=== PATIENT | female | born 1950 | race Caucasian/White ===

== ENCOUNTER → 2016-11-30 | Outpatient (CLI) | payer OTHER ==
[~2016-11-30] MED LIST: ADIPEX-P37.5 M1 PO; ALEVE220 MG PO; ALPRAZOLAM 0.50.5 M1 PO; APAP500 PO; ASPIRIN EC81 M1 PO; BACLOFEN 10MG T10 MG PO; BYSTOLIC 5 MG5 M1 PO; CARISOPRODOL 3350 MG PO; DEXILANT60 MG PO; ESTRATEST HS PO; FISH OIL 1,001000 MG PO; GABAPENTIN 100100 MG PO; HYDROCHLOROTHIA25 M1 PO; MULTIVITAMINS PO; TOPROL XL25 MG PO; TRAMADOL 50 MG50 MG PO; VITAMINC500 PO
== END ==
LOC: RAD 16:47
DX: M40.294 Other kyphosis, thoracic region (principal); M47.817 Spondylosis without myelopathy or radiculopathy, lumbosacral region

== ENCOUNTER → 2017-02-23 | Outpatient (CLI) | payer OTHER ==
[~2017-02-23] VITALS: Ht 167.6 cm; Wt 64.9 kg
--- NOTE | ~2017-02-23 | HPC ---
[facility] [place] [address] PAIN MANAGEMENT CONSULTATION Name: HUTCHISONCOMFORT D Room #: REG [facility].#: [id number] Admission: 02/23/17 Attend Phys: Brett Harman DO Discharge: Date of : 50 Report #: [id number] THIS REPORT FOR: //name// CC: Brett Cabrera MD DATE OF SERVICE: 02/23/2017 CHIEF COMPLAINT: Low back pain, right mid thoracic pain. HISTORY OF PRESENT ILLNESS: As you know, the patient is a 67-year-old female who has been referred back to our clinic to discuss options for treatment. We last saw the patient 01/22/2016 when she was diagnosed with myofascial pain, lumbosacral spondylosis without radicular symptoms. She was treated with conservative medical therapy, even trialed intraarticular facet injections, but these were ineffective. She has been lost to follow up visit until today where she returns with a request of Dr. Cabrera to trial trigger point injections. There has been no new imaging that shows any pathology that would be contributing to the patient's symptoms. ALLERGIES: CODEINE, HYDROCODONE. CURRENT MEDICATIONS: Estratest 0.625 mg once a day, hydrochlorothiazide 25 mg per day, Dexilant 60 mg once a day, gabapentin 100 mg p.o. at bedtime, naproxen 220 mg 2 tabs b.i.d., acetaminophen 500 mg once a day, multivitamin 1 tab per day. SOCIAL HISTORY: The patient denies tobacco, alcohol, IV or illicit drug use. She is working, not receiving workmen's compensation. She is unaccompanied today. IMAGING: No new imaging available. PHYSICAL EXAMINATION: VITAL SIGNS: Blood pressure 123/74, pulse 74, respiratory rate 14, unlabored. The patient is 98% on room air, height 5 feet 6 inches tall, weight 143 pounds, BMI calculated 23.1. GENERAL: Well-developed, well-nourished, well-hydrated 67-year-old female, appears much younger than stated age, placing current pain score at around 3/10. HEENT: Normocephalic, atraumatic. Pupils equal, round, reactive to light. Extraocular muscles are intact. Sclerae nonicteric without injection. NEUROLOGIC: Cranial nerves 2-12 grossly intact. Speech fluent. The patient deemed a good historian. LUNGS: Clear, no wheeze, rhonchi or rales. CARDIOVASCULAR: Regular. [place] [address] PAIN MANAGEMENT CONSULTATION Name: COMFORT HUTCHISON Room #: REG [facility]#: [id number] Admission: 02/23/17 Attend Phys: Brett Harman DO Discharge: Date of : 50 Report #: [id number] ABDOMEN: Soft, nontender, nondistended, normoactive bowel sounds. EXTREMITIES: Show no clubbing, no cyanosis, no edema. MUSCULOSKELETAL: The patient does have tenderness to palpation over the paraspinal musculature of the thoracic and lumbar area. I was able to palpate 6 different trigger points that caused the patient's typical radiating pain pattern. There is no spinous process tenderness in this thoracolumbar area. ASSESSMENT: 1. Myofascial pain. 2. Muscle spasms of the thoracic paraspinal musculature. 3. Chronic intractable pain. PLAN: 1. The patient returns today in followup visit where we have discussed treatment options per the request of her primary care physician, Dr. Juvenal Cabrera. It does appear the patient is suffering from some myofascial symptoms and I recommend trigger point injections into the 6 trigger points we have identified by physical exam today. The patient was advised risks and benefits of this procedure, states she understood and wished to proceed. 2. The patient will be started on Soma 350 mg dose 1 tab p.o. t.i.d. She has been on this medication in the past and denies any somnolence, decreased mental acuity, disorientation with its use. We will start the patient on Soma 350 mg dose to be taken as needed for muscle spasming. The patient was advised not to drive or operate heavy equipment while on this medication. 3. The patient was provided prescription of tramadol 50 mg dose 1 tab p.o. q. 6 hours p.r.n. for pain, given the patient #90 tablets, advised the patient to take this medication when pain is intolerable, not to rely on the medication prophylactically. This medication is to be used only for breakthrough pain unresolved by stretching and changing positions. 4. We will see the patient back in followup visit on an as needed basis for possible repeat trigger point injections. We can then discuss at that time other treatment options if necessary. Again, we do not see any major pathology that would be leading to her symptoms. I believe her symptoms tend to be more myofascial PROCEDURE NOTE DESCRIPTION OF PROCEDURE: Trigger point injections. After obtaining written consent, the patient was placed in a prone position. By palpating using a single finger, 6 trigger points were identified that reproduced the patient's typical radiating pain pattern. The trigger points were located within the paraspinal musculature of the upper thoracic and mid thoracic area. Each of the target sites of injection were cleansed using aseptic technique with chlorhexidine. A 27-gauge 1-1/4 inch needle was then advanced towards each trigger point until the patient's typical radiating pain [facility] [address] [place] [address] PAIN MANAGEMENT CONSULTATION Name: COMFORT HUTCHISON Room #: REG [facility]#: [id number] Admission: 02/23/17 Attend Phys: Brett Harman DO Discharge: Date of : 50 Report #: [id number] pattern was reproduced. After negative aspiration for heme, 1 mL of a solution containing 1 mL 40 mg per mL, 40 mg total triamcinolone and 5 mL of bupivacaine 0.5% was injected in a fanned out distribution at each trigger point total volume of 6 mL being given. Sterile bandages were placed over each injection site. The patient tolerated procedure well, carefully escorted to recovery room in stable condition. After meeting our discharge criteria, the patient was then discharged home. By: [id number] Brett Harman DO /nt
[2017-02-23 14:19] VITALS: BP 123/74
== END | disposition home or self-care (01) ==
LOC: PAIN 07:17
DX: M79.1 Myalgia (principal); G89.29 Other chronic pain; Z88.8 Allergy status to other drugs, medicaments and biological substances; Z79.899 Other long term (current) drug therapy; Z98.890 Other specified postprocedural states

== ENCOUNTER → 2017-03-16 | Outpatient (CLI) | payer OTHER ==
[~2017-03-16] VITALS: Ht 165.1 cm; Wt 66.2 kg
--- NOTE | ~2017-03-16 | HPC ---
[facility] [address] [place] [address] PAIN MANAGEMENT CONSULTATION Name: KIANNACOMFORT D Room #: REG [facility].#: [id number] Admission: 03/16/17 Attend Phys: Brett Harman DO Discharge: Date of : 50 Report #: [id number] THIS REPORT FOR: //name// CC: Brett Cabrera MD DATE OF SERVICE: 03/16/2017 REFERRING PHYSICIAN: Juvenal Cabrera MD CHIEF COMPLAINT: Low back pain, right lower extremity pain with paresthesias. HISTORY OF PRESENT ILLNESS: As you know, the patient is a very pleasant 67-year-old female who returns today in followup visit with low back pain, now reporting pain radiating all the way from the low back through the buttock posterolateral thigh all the way down to her calf. It appears to be along the L5 dermatomal distribution. She indicates no injury and no trauma that may have led to symptoms, but believes that she may have initiated pain while trying to dig out a large tammy alcaraz, which required a significant amount of digging and pulling and this may have led to her symptom development. She returns today in followup visit per the request of her primary care physician to trial an epidural injection under fluoroscopic guidance. ALLERGIES: HYDROCODONE and CODEINE. CURRENT MEDICATIONS: Estratest, hydrochlorothiazide, Dexilant, gabapentin, naproxen, acetaminophen, and multivitamin. SOCIAL HISTORY: The patient denies tobacco, alcohol, IV or illicit drug use. She is working, not receiving workmen's compensation nor is she trying to obtain disability benefits. She is unaccompanied today. IMAGING: No new imaging available. PHYSICAL EXAMINATION: VITAL SIGNS: Blood pressure 124/78, pulse 82, respiratory rate 14 and unlabored, the patient is 97% on room air, height 5 feet 5 inches tall, weight 146 pounds, and BMI calculated 24.3. GENERAL: Well-developed, well-nourished, well-hydrated 67-year-old female, appearing her stated age. She is placing current pain score 2-7/10 depending on activity. HEENT: Normocephalic, atraumatic. Pupils are equal, round, and reactive to light. Extraocular muscles are intact. Speech is fluent. EXTREMITIES: Show no clubbing, no cyanosis, and no edema. MUSCULOSKELETAL: Seated straight leg raising negative. Supine straight leg [address] [address] PAIN MANAGEMENT CONSULTATION Name: COMFORT HUTCHISON Room #: REG [facility]#: [id number] Admission: 03/16/17 Attend Phys: Brett Harman DO Discharge: Date of : 50 Report #: [id number] raising mildly positive right. Ester's test negative. She is intact to light touch from L1 through S2 dermatomes. Muscle bulk and tone equal and symmetrical in lower extremities. Gait normal. Stance normal. ASSESSMENT: 1. Symptomatic lumbar radiculopathy. 2. Lumbosacral spondylosis with radicular symptoms. PLAN: 1. The patient has returned today in followup visit with what appears to be lumbar radiculopathy on the L5 nerve roots running down the right leg. The patient and I discussed at length treatment options for lumbar radicular pain. These would include physical therapy, stretching exercises, and core strengthening. We discussed medication management, the addition of a neuropathic pain medication, low dose opioid for pain control and consistent nonsteroidal anti-inflammatory. We discussed lumbar epidural injections under fluoroscopic guidance, spinal cord stimulator therapy and surgical options. After reviewing the risks and benefits of all proposed treatment options, the patient chose to undergo an epidural injection under fluoroscopic guidance. The patient has been advised of risks and benefits of the procedure. These risks include, but are not necessarily limited to bleeding, bruising, infection, worsening of pain, no relief of pain, also risk of temporary or permanent muscle weakness, temporary or permanent nerve damage, post-dural puncture headache and . The patient states understood and wished to proceed. 2. No medication changes were made at today's visit. The patient to continue current medical therapy as previously prescribed. 3. The patient to return to our clinic on an as needed basis for next in the series of epidural injections. PROCEDURE NOTE DESCRIPTION OF PROCEDURE: L5-S1 right paramedian epidural steroid injection under fluoroscopic guidance. This is the first procedure of the first series that the patient is undergoing. After obtaining written consent, the patient was taken back to the fluoroscopy suite, placed in a prone position with pillow under the abdomen to decrease lumbar lordosis. The skin overlying the lumbosacral area was then prepped and draped in aseptic fashion. The L5-S1 vertebral interspace was then identified by AP fluoroscopy. The skin and subcutaneous tissue overlying the target site of injection was anesthetized with 3 mL 1% lidocaine. A 20-gauge 3-1/2-inch Tuohy needle was then advanced under fluoroscopic guidance towards the epidural space using a right paramedian approach. The epidural [address] [address] PAIN MANAGEMENT CONSULTATION Name: COMFORT HUTCHISON Room #: REG [facility]#: [id number] Admission: 03/16/17 Attend Phys: Brett Harman DO Discharge: Date of : 50 Report #: [id number] space was identified using loss of resistance to air technique. After negative aspiration for heme or cerebrospinal fluid, a total of 1 mL of Omnipaque was injected. A lumbar epidurogram was confirmed using both AP and lateral fluoroscopy. After negative aspiration for heme or cerebrospinal fluid, 5 mL of a solution containing 2 mL 40 mg per mL, 80 mg total triamcinolone and 3 mL lidocaine 1% was injected in increments. Contrast spread was noted posterior epidural space. The needle was then retracted approximately half way and needle tract flushed with 1 mL of 1% lidocaine. Needle was then removed. There were no apparent sensory or motor deficits in the lower extremity following the procedure. A sterile bandage was placed over the injection site. The heart rate, pulse, oximetry and blood pressure were continuously monitored after the procedure. There were no apparent complications. The patient tolerated the procedure well and was carefully escorted to the recovery room in stable condition. There were no apparent complications. After meeting discharge criteria, the patient was then discharged home. <ELECTRONICALLY SIGNED> By: Brett Harman DO 03/17/17 [id number] Brett Harman DO /nt
[2017-03-16 12:41] VITALS: BP 124/78
== END | disposition home or self-care (01) ==
LOC: PAIN 07:06
DX: M54.16 Radiculopathy, lumbar region (principal); M47.27 Other spondylosis with radiculopathy, lumbosacral region; Z88.8 Allergy status to other drugs, medicaments and biological substances; Z79.899 Other long term (current) drug therapy

== ENCOUNTER → 2017-04-06 | Outpatient (CLI) | payer OTHER ==
[~2017-04-06] VITALS: Ht 167.6 cm; Wt 66.0 kg
--- NOTE | ~2017-04-06 | HPC ---
[facility] [place] [address] PAIN MANAGEMENT CONSULTATION Name: COMFORT HUTCHISON Charli Room #: REG [facility]#: [id number] Admission: 04/06/17 Attend Phys: Brett Harman DO Discharge: Date of : 50 Report #: [id number] THIS REPORT FOR: //name// CC: Brett Cabrera MD DATE OF SERVICE: 04/06/2017 REFERRING PHYSICIAN: Juvenal Cabrera MD CHIEF COMPLAINT: Low back pain, right lower extremity pain with paresthesias. HISTORY OF PRESENT ILLNESS: As you know, the patient is a very pleasant 67-year-old female who returns today in followup visit to undergo epidural injection under fluoroscopic guidance. She last underwent an epidural injection 3 weeks ago. She has reported 50% improvement in overall pain. She is now placing pain score at 3-8/10 depending on activity. She indicates standing movement tends to exacerbate symptoms. She returns today in followup visit for next in a series of epidural injections. ALLERGIES: HYDROCODONE, CODEINE. CURRENT MEDICATIONS: Estratest, hydrochlorothiazide, Dexilant, gabapentin, naproxen, acetaminophen and multivitamins. SOCIAL HISTORY: The patient denies tobacco, alcohol, IV or illicit drug use. She is working, not receiving workmen's compensation, unaccompanied today. IMAGING: No new imaging available. PHYSICAL EXAMINATION: VITAL SIGNS: Blood pressure 127/70, pulse 92, respiratory rate 14 and unlabored. The patient is 97% on room air, height 5 feet 6 inches tall, weighs 145.6 pounds, BMI calculated 23.5. GENERAL: Well developed, well nourished, well hydrated 67-year-old female, appearing her stated age. Placing current pain score at 3-8/10 depending on activity. HEENT: Normocephalic, atraumatic. Pupils equal, round, reactive to light. Extraocular muscles are intact. EXTREMITIES: Show no clubbing, no cyanosis, no edema. MUSCULOSKELETAL: Seated straight leg raising negative. Supine straight leg raising mildly positive on the right. Ester's test negative. Modified Gaenslen's positive for axial low back pain. Muscle bulk and tone equal and symmetrical in lower extremities, intact to light touch from L1 through S2 dermatomes. [address] [address] PAIN MANAGEMENT CONSULTATION Name: COMFORT HUTCHISON Room #: REG [facility]#: [id number] Admission: 04/06/17 Attend Phys: Brett Harman DO Discharge: Date of : 50 Report #: [id number] ASSESSMENT: 1. Lumbar radiculopathy. 2. Lumbosacral spondylosis with radiculopathy. 3. Chronic intractable pain. PLAN: 1. The patient returns today in followup visit, indicating 50% improvement in overall pain with the epidural injection. She returns today in followup visit, requesting to undergo the next in series of injections in hopes of improving pain. We have advised the patient of the risks and benefits, states she understood and wished to proceed. 2. No medication changes were made at today's visit. The patient will continue current medical therapy as previously prescribed. 3. The patient to return to our clinic on an as-needed basis for the third and final in series of epidural injections. PROCEDURE NOTE DESCRIPTION OF PROCEDURE: L5-S1 right paramedian epidural steroid injection under fluoroscopic guidance. This is the second procedure of the first series that the patient is undergoing. After obtaining written consent, the patient was taken back to the fluoroscopy suite, placed in a prone position with pillow under the abdomen to decrease lumbar lordosis. The skin overlying the lumbosacral area was then prepped and draped in aseptic fashion. The L5-S1 vertebral interspace was then identified by AP fluoroscopy. The skin and subcutaneous tissue overlying the target site of injection was anesthetized with 3 mL 1% lidocaine. A 20 gauge 3.5 inch Tuohy needle was then advanced under fluoroscopic guidance towards the epidural space using right paramedian approach. The epidural space was identified using loss of resistance to air technique. After negative aspiration for heme or cerebrospinal fluid, a total of 1 mL of Omnipaque was injected. A lumbar epidurogram was confirmed using both AP and lateral fluoroscopy. After negative aspiration for heme or cerebrospinal fluid, 5 mL of a solution containing 2 mL 40 mg per mL, 80 mg total triamcinolone and 3 mL lidocaine 1% was injected in increments. Contrast spread was noted posterior epidural space. The needle was then retracted approximately half way and needle tract flushed with 1 mL of 1% lidocaine. Needle was then removed. There were no apparent sensory or motor deficits in the lower extremity following the procedure. A sterile bandage was placed over the injection site. The heart rate, pulse, oximetry and blood pressure were continuously monitored after the procedure. There were no apparent complications. The patient [facility] [address] [place] [address] PAIN MANAGEMENT CONSULTATION Name: COMFORT HUTCHISON [facility] [id number] Admission: 04/06/17 Attend Phys: Brett Harman DO Discharge: Date of : 50 Report #: [id number] tolerated the procedure well and was carefully escorted to the recovery room in stable condition. There were no apparent complications. After meeting discharge criteria, the patient was then discharged home. By: [id number] Brett Harman DO /nt
[2017-04-06 11:12] VITALS: BP 127/70
== END | disposition home or self-care (01) ==
LOC: PAIN 07:12
DX: M54.16 Radiculopathy, lumbar region (principal); M47.27 Other spondylosis with radiculopathy, lumbosacral region; G89.29 Other chronic pain; Z88.8 Allergy status to other drugs, medicaments and biological substances; Z79.899 Other long term (current) drug therapy

== ENCOUNTER → 2017-05-03 | Outpatient (CLI) | payer OTHER | LOC: MRI 09:06 → RAD 14:10 → MRI 14:10 | DX: Z12.31 Encounter for screening mammogram for malignant neoplasm of breast (principal); M47.896 Other spondylosis, lumbar region ==

== ENCOUNTER → 2017-05-18 | Outpatient (CLI) | payer OTHER ==
[~2017-05-18] VITALS: Ht 167.6 cm; Wt 69.2 kg
--- NOTE | ~2017-05-18 | HPC ---
[facility] [address] [place] [address] PAIN MANAGEMENT CONSULTATION Name: HUTCHISONCOMFORT Charli Room #: REG [facility]#: [id number] Admission: 05/18/17 Attend Phys: Brett Harman DO Discharge: Date of : 50 Report #: [id number] THIS REPORT FOR: //name// CC: Brett Cabrera MD DATE OF SERVICE: 05/18/2017 REFERRING PHYSICIAN: Juvenal Cabrera MD CHIEF COMPLAINT: Low back pain, right lower extremity pain and paresthesias. HISTORY OF PRESENT ILLNESS: As you know, the patient is a very pleasant 67-year-old female who returns today in followup visit reporting pain level of 5-6/10. She indicates that the pain begins in low back, radiates down the right leg, but intermittently left leg. She states this pain as numbness, aching, constant in sensation, exacerbated with standing and activities, improved with cold temperatures and previous epidural injections. She reported a 50% improvement in overall pain with the last epidural injection, but this only lasted for a week to week and a half. Due to lack of efficacy from the epidural injections, the patient was subsequently referred for MRI, she has returned to review the findings of the MRI that was performed on 05/03/2017. ALLERGIES: HYDROCODONE and CODEINE. CURRENT MEDICATIONS: Multivitamin 1 tab per day, Aleve 220 mg 2 tabs twice a day, Neurontin 100 mg 2 tabs at night, Dexilant 60 mg once a day, hydrochlorothiazide 25 mg per day, and Estratest 0.625 mg once a day. SOCIAL HISTORY: The patient denies tobacco, alcohol, IV or illicit drug use. She is working, not receiving workmen's compensation, unaccompanied today. IMAGING: MRI lumbar spine obtained on 05/03/2017, shows a cavernous hemangioma at the L1 vertebral body, chronic degenerative changes at L5-S1 with calcifications within the disk space, Modic type 2 changes present in the end plates at the L5-S1 level. L1-L2 unremarkable. L2-L3 shows mild changes, no disk protrusion, no central canal stenosis. L3-L4, mild bilateral degenerative disk disease, ligamentum flavum hypertrophy. No central canal neural foraminal stenosis. L4-L5, minimal grade 1 spondylolisthesis, advanced bilateral hypertrophic degenerative changes. There is a development of a bilateral intraspinal synovial cyst, which is greatest on the right, right-sided synovial cyst which originates from the facet joint measures contributing the right lateral recess narrowing, ligamentum flavum hypertrophy causing joint space narrowing, traverse dimension of the central canal is measured at 8 mm, AP diameter narrowed to 9 mm, there is bilateral neural foraminal narrowing. [address] [address] PAIN MANAGEMENT CONSULTATION Name: COMFORT HUTCHISON Room #: REG [facility]#: [id number] Admission: 05/18/17 Attend Phys: Brett Harman DO Discharge: Date of : 50 Report #: [id number] L5-S1, degenerative disk disease, partial calcification of the disk, small disk osteophyte complex, mild bilateral neural foraminal narrowing. PHYSICAL EXAMINATION: VITAL SIGNS: Blood pressure 128/61, pulse 85, respiratory rate 16 and unlabored, the patient is 96% on room air, height 5 feet 6 inches tall, weight 152.6 pounds, and BMI calculated at 24.6. GENERAL: Well-developed, well-nourished, well-hydrated 67-year-old female, appearing her stated age, she is placing current pain score at 5-6/10. HEENT: Normocephalic, atraumatic. Pupils are equal, round, and reactive to light. Extraocular muscles are intact. Sclerae nonicteric without injection. NEUROLOGIC: Speech fluent. The patient deemed an excellent historian. LUNGS: Clear. No wheeze, rhonchi or rales. CARDIOVASCULAR: Regular. No appreciable gallop or rub. ABDOMEN: Soft, nontender, and nondistended. EXTREMITIES: Show no clubbing, no cyanosis, and no edema. MUSCULOSKELETAL: Seated straight leg raising negative. Supine straight leg raising mildly positive on right. Ester's test negative. Modified Gaenslen's positive for some axial low back pain. Ankle clonus negative. Babinski is negative. ASSESSMENT: 1. Lumbar radiculopathy. 2. Lumbosacral spondylosis with radiculopathy. 3. Synovial cyst in the lumbar spine. 4. Chronic intractable pain. PLAN: 1. The patient returns today in followup visit where we reviewed her MRI imaging. I believe her symptoms are related to the synovial cyst that have presented since our last evaluation of 12/25/2015. I believe the combination of arthritic changes and synovial cysts are the source of the patient's mainly right-sided leg pain and paresthesias, but also contributing to left side symptoms. The patient had undergone epidural injections, unfortunately these only provided transient improvement in symptoms, I believe mainly due to the mass effect of the synovial cyst in the lateral recess. The patient and I discussed that options that remain for treatment would include medication management, physical therapy with stretching exercises, repeating epidural injections, though I do not feel those will provide long-term benefit based on previous injections, spinal cord stimulator therapy as an option and surgical options to removed the cystic formations, alleviating the pressure caused by these cysts. We also discussed interventional radiology with cyst aspiration understanding that the cyst will return without excision of the cystic material. After reviewing all the risks and benefits of treatment options available, the patient chose to look towards a neurosurgery option. 2. The patient will be referred to neurosurgery for evaluation for the findings [address] [address] PAIN MANAGEMENT CONSULTATION Name: COMFORT HUTCHISON Room #: REG [facility]#: [id number] Admission: 05/18/17 Attend Phys: Brett Harman DO Discharge: Date of : 50 Report #: [id number] on the MRI of 05/03/2017, at the L4-L5 level the source of the patient's symptoms. The patient will be seen by neurosurgery to determine if a synovial cystectomy and possible laminectomy would be necessary to address ongoing pain issues. We did discuss the interventional radiology root, having the interventional radiologist aspirate or rupture the cyst, though the patient was advised that the cystic formation would return in time and would have to ultimately be excised. After this discussion, the patient chose to look specifically towards neurosurgery consultation. She was provided the referral for neurosurgery, she will follow up with the neurosurgery team and then contact our clinic with recommendations and treatment options. 3. No medication changes were made at today's visit, the patient will continue current medical therapy as previously prescribed. 4. We will see the patient back in followup visit depending on consultation and recommendations from neurosurgery, we will be available to see her back as necessary. <ELECTRONICALLY SIGNED> By: Brett Harman DO 05/19/17 [id number] Brett Harman DO /nt
[2017-05-18 08:26] VITALS: BP 128/61
== END | disposition home or self-care (01) ==
LOC: PAIN 07:23
DX: M54.16 Radiculopathy, lumbar region (principal); M47.27 Other spondylosis with radiculopathy, lumbosacral region; M71.38 Other bursal cyst, other site; G89.29 Other chronic pain

== ENCOUNTER → 2018-01-25 | Outpatient (CLI) | payer OTHER ==
[~2018-01-25] VITALS: Ht 167.6 cm; Wt 66.0 kg
[~2018-01-25] MED LIST changes: +VALIUM5 MG PO
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
[2018-01-25 09:23] VITALS: BP 123/80
== END | disposition home or self-care (01) ==
LOC: PAIN 07:30
DX: M51.16 Intervertebral disc disorders with radiculopathy, lumbar region (principal); G89.29 Other chronic pain; M79.1 Myalgia; Z88.8 Allergy status to other drugs, medicaments and biological substances; Z79.899 Other long term (current) drug therapy; Z98.890 Other specified postprocedural states

== ENCOUNTER → 2018-02-15 | Outpatient (CLI) | payer OTHER ==
[~2018-02-15] VITALS: Ht 167.6 cm; Wt 63.7 kg
[~2018-02-15] MED LIST changes: +TRAMADOL HCL50 MG PO
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
[2018-02-15 10:43] VITALS: BP 130/80
== END ==
LOC: PAIN 08:04
DX: M47.817 Spondylosis without myelopathy or radiculopathy, lumbosacral region (principal); G89.4 Chronic pain syndrome; M79.661 Pain in right lower leg

== ENCOUNTER → 2018-02-21 | Outpatient (CLI) | payer OTHER | LOC: MRI 09:27 | DX: M54.16 Radiculopathy, lumbar region (principal) ==

== ENCOUNTER → 2018-03-30 | Outpatient (CLI) | payer OTHER ==
[~2018-03-30] VITALS: Ht 167.6 cm; Wt 65.0 kg
--- NOTE | ~2018-03-30 | HPC ---
[facility] [place] [address] PAIN MANAGEMENT CONSULTATION Name: COMFORT HUTCHISON Room #: REG [facility] Enrique.#: [id number] Admission: 03/30/18 Attend Phys: Brett Harman DO Discharge: Date of : 50 Report #: [id number] THIS REPORT FOR: //name// CC: Brett Cabrera MD DATE OF SERVICE: 03/30/2018 REFERRING PHYSICIAN: Juvenal Cabrera M.D. CHIEF COMPLAINT: Low back pain and bilateral buttock and right lower extremity pain. HISTORY OF PRESENT ILLNESS: As you know, the patient is a 68-year-old female followed by [facility] for lumbar radiculopathy. She returns today in followup visit having completed a lumbar MRI and she wishes to review the findings. She also was discussed treatment options for her ongoing symptoms. She returns today in followup visit with noted minor changes at the L3-L4 level and the L5-S1 level which would correlate to a typical finding seen from a post-fusion patients. The findings themselves do not cause any lateralizing features. She returns today in followup visit stating a pain of around 3/10. She wishes to begin the preauthorization process to undergo epidural injection. She indicates her pain is aching, tightness, intermittent in nature, bending, moving, standing, exacerbates symptoms, cold compresses, lying down, medications tend to help pain. She returns today in followup visit to review her MRI and to discuss the possibility of undergoing an epidural injection to address recurrent lumbar radicular symptoms. ALLERGIES: CODEINE, HYDROCODONE and NITROFURANTOIN. CURRENT MEDICATIONS: Estratest, hydrochlorothiazide, Dexilant, gabapentin and diazepam. SOCIAL HISTORY: The patient continues to work. Denies IV or illicit drug use. Denies any chronic alcohol use. She is unaccompanied today. IMAGING DATA: MRI lumbar spine shows a small disk protrusion at the L3-L4 level. There appears to be mild arthritic changes within the facet joints, also some mild neural foraminal narrowing at this level. L4-L5 is unchanged, post-laminectomy changes typical surgical findings. L5-S1, there is a small base disk bulge, mild facet arthropathy. No neural foraminal stenosis. PQRS: The patient has a history of osteoarthritis involving the low back, bilateral hands and hips. She is not diagnosed with rheumatoid arthritis. She places pain intensity 3/10, not a fall risk, has not had a fall in the last [address] [address] PAIN MANAGEMENT CONSULTATION Name: COMFORT HUTCHISON Room #: REG [facility]#: [id number] Admission: 03/30/18 Attend Phys: Brett Harman DO Discharge: Date of : 50 Report #: [id number] months. She is not on blood thinners. She is treated for hypertension. She is not on opioids. She is a low risk for opioid dependency. She is placing current pain score 45/70, moderate to severe interference with daily activities secondary to pain. PHYSICAL EXAMINATION: VITAL SIGNS: Blood pressure 129/82, pulse 87 and respiratory rate 18 and unlabored. The patient 99% on room air. Height 5 feet 6 inches tall, weight 143.4 pounds and BMI calculated 23.2. GENERAL: Well-developed, well-nourished, well-hydrated 68-year-old female. She appears her stated age, placing current pain score at approximately 3/10. HEENT: Normocephalic and atraumatic. Pupils equal, round and reactive to light. EXTREMITIES: Show no clubbing, no cyanosis and no edema. MUSCULOSKELETAL: Lower extremity strength is equal and symmetrical, 5/5. She is intact to light touch from L1 through S2 dermatomes. Muscle bulk and tone equal and symmetrical in lower extremities. Ankle clonus negative. Babinski is negative. Seated straight leg raise negative. Supine straight leg raising is negative. Ester's test negative. Modified Gaenslen's positive for axial low back pain. ASSESSMENT: 1. Recurrent lumbar radiculopathy. 2. Mild displacement of lumbar intervertebral disk with radiculopathy. 3. Chronic intractable pain. PLAN: 1. The patient returns today in followup visit where we reviewed in its entirety the recent MRI and how it correlates to symptoms. I am pleased to indicate that there is no new acute changes in her lumbar spine, the changes noted at the L3-L4 level and again at the L5-S1 level appeared to be related to post-fusion typical findings of development of arthritis. There is a small broad-based disk bulges at the L3-L4 and the L5-S1 levels though they are not causing cord impingement nor are they causing any significant spinal stenosis. There are some mild neural foraminal changes noted at the L3-L4 level. No changes of these type at the L5-S1 level. We have discussed this with the patient today. After this long discussion in regards to the MRI, which she took nearly 22 minutes of time. We then began to discuss treatment options and following was discussed. We discussed physical therapy, stretching exercise, core strengthening as a treatment option. We discussed medication management with the addition of a neuropathic pain medication, low dose opioid for pain control and consistent nonsteroidal anti-inflammatory. We discussed lumbar epidural injections, which have been successful in the past to treat her symptoms. We discussed a spinal cord stimulator therapy and ultimately surgical options, though at this point, I do not feel the patient is a surgical candidate. After reviewing risks and benefits of all proposed treatment [address] [address] PAIN MANAGEMENT CONSULTATION Name: COMFORT HUTCHISON Charli [id number] Admission: 03/30/18 Attend Phys: Brett Harman DO Discharge: Date of : 50 Report #: [id number] options, the patient chose to move forward with an epidural injection. We discussed with the patient options for timing for epidural injection at this appointment. The patient states she cannot undergo the procedure as she has to return to work. She will make a followup appointment with one of our clinics to undergo epidural injection. I did allow the patient to look at her schedule contact us later this evening, so that we can establish an appointment date. We have appointments at our clinic here at [place], possibly at [facility] either on Wednesday or or at [facility] on Wednesday. We will await the patient's call to establish the appointment date. 2. No medication changes were made at today's visit. The patient will continue current medical therapy as previously prescribed. 3. We will see the patient back in followup visit once she has established appointment to undergo the requested lumbar epidural injection. <ELECTRONICALLY SIGNED> By: Brett Harman DO 03/31/18 0818 [id number] Brett Harman DO /catalina
[2018-03-30 13:31] VITALS: BP 129/82
== END ==
LOC: PAIN 07:56
DX: M51.16 Intervertebral disc disorders with radiculopathy, lumbar region (principal); G89.4 Chronic pain syndrome

== ENCOUNTER → 2018-07-12 | Outpatient (CLI) | payer OTHER ==
[~2018-07-12] VITALS: Ht 167.6 cm; Wt 69.8 kg
[~2018-07-12] MED LIST changes: +PEPCID20 MG PO
--- NOTE | ~2018-07-12 | HPC ---
[facility] [address] [place] [address] PAIN MANAGEMENT CONSULTATION Name: HUTCHISON,COMFORT D Room #: REG [facility].#: [id number] Admission: 07/12/18 Attend Phys: Brett Harman DO Discharge: Date of : 50 Report #: [id number] THIS REPORT FOR: //name// CC: Brett Moreno DATE OF SERVICE: 07/12/2018 CHIEF COMPLAINT: Low back pain, bilateral buttock and right lower extremity pain with paresthesias. HISTORY OF PRESENT ILLNESS: As you know, the patient is a very pleasant 68-year-old female who returns today in followup visit to address lumbar radicular symptoms with a lumbar epidural injection under fluoroscopic guidance. The patient has received good benefit with previous epidural injections, the most recent giving improvement of 50%, lasting for more than 2 months. She returns today in followup visit to undergo next in the series of epidural injections to address slowly recurrent pain for which she is placing pain score up to 5-6/10. She denies new injury, new trauma that may have led to symptom reoccurrence. She returns today to undergo epidural injection under fluoroscopic guidance. ALLERGIES: CODEINE, HYDROCODONE, NITROFURANTOIN. CURRENT MEDICATIONS: Estratest, hydrochlorothiazide, Dexilant, gabapentin, diazepam. SOCIAL HISTORY: The patient continues to work. She denies IV or illicit drug use. Denies any chronic alcohol use. She is unaccompanied today. IMAGING: No new imaging available. PQRS: The patient has history of osteoarthritis involving low back, bilateral hands and hips, no diagnosis of rheumatoid arthritis. She is reporting pain intensity of 5-6/10. She is not a fall risk, has not had a fall in the last 3 months. She is not on blood thinners. She is treated for hypertension. She is not on chronic opioids. She is a low risk for opioid addiction. She is placing her pain impact at 45/70, [id number] interference of daily activities secondary to pain. PHYSICAL EXAMINATION: VITAL SIGNS: Blood pressure 133/71, pulse is 73, respiratory rate 16 and unlabored. The patient is 98% on room air. Height 5 feet 6 inches tall, weight 153.8 pounds, BMI calculated at 24.8. GENERAL: Well-developed, well-nourished, well-hydrated 68-year-old female, [address] [address] PAIN MANAGEMENT CONSULTATION Name: HUTCHISONCOMFORT NAYAK Room #: REG [facility]#: [id number] Admission: 07/12/18 Attend Phys: Brett Harman DO Discharge: Date of : 50 Report #: [id number] appearing stated age, placing pain score 5-6/10. HEENT: Normocephalic, atraumatic. Pupils equal, round, reactive to light. EXTREMITIES: Show no clubbing, no cyanosis, no edema. MUSCULOSKELETAL: Lower extremity strength is symmetrical 5/5, intact to light touch from L1 through S2 dermatomes. Seated straight leg raising negative. Supine straight leg raising negative. Ester's test negative. Modified Gaenslen's positive for axial low back pain. Ankle clonus negative. Well-healed surgical scar in lower lumbar spine. ASSESSMENT: 1. Recurrent lumbar radiculopathy. 2. Mild displacement of lumbar intervertebral disk with radiculopathy. 3. Chronic intractable pain. PLAN: 1. The patient returns today in followup visit having noted 50% improvement in overall pain with the previous epidural injection lasting for nearly 2 months. Unfortunately, the patient's symptoms have begun to return. She returns today to undergo epidural injection under fluoroscopic guidance to address these symptoms. She has been advised risks and benefits of procedure, states understood and wished to proceed. 2. No medication changes made at today's visit. The patient will continue current medical therapy as previously prescribed. 3. We will see the patient back in followup visit on an as needed basis for the next in a series of epidural injections. PROCEDURE NOTE DESCRIPTION OF PROCEDURE: L3-L4 Lumbar epidural steroid injection under fluoroscopic guidance. After obtaining written consent, the patient was taken back to fluoroscopy suite, placed in prone position with pillow under abdomen to decrease lumbar lordosis. Skin overlying lumbosacral area then prepped and draped in aseptic fashion. The L3-L4 interspace was identified by AP fluoroscopy. Skin and subcutaneous tissue overlying target site of injection was anesthetized with 3 mL of 1% lidocaine. A 20-gauge 3-1/2 inch Tuohy needle advanced under fluoroscopic guidance towards the epidural space using a paramedian approach. Epidural space identified using loss of resistance to air technique. After negative aspiration for heme or cerebrospinal fluid, 1 mL of Omnipaque injected. Lumbar epidurogram confirmed using both AP and lateral fluoroscopy. After negative aspiration for heme or cerebrospinal fluid, 5 mL of a solution containing 2 mL 40 mg per mL, 80 mg total triamcinolone, 3 mL lidocaine 1% injected slowly. Needle retracted skilled nursing, flushed with 1 mL of 1% lidocaine and removed. Sterile bandage was [address] [address] PAIN MANAGEMENT CONSULTATION Name: COMFORT HUTCHISON Charli Room #: REG [facility] Eusebio#: [id number] Admission: 07/12/18 Attend Phys: Brett Harman DO Discharge: Date of : 50 Report #: [id number] placed over injection site. No new motor deficits present in lower extremity following procedure. The patient tolerated the procedure well, carefully escorted to recovery room in stable condition. No apparent complications. After meeting discharge criteria, the patient discharged home. By: [id number] Brett Harman DO /nt
[2018-07-12 12:35] VITALS: BP 133/71
== END | disposition home or self-care (01) ==
LOC: PAIN 11:05
DX: M51.16 Intervertebral disc disorders with radiculopathy, lumbar region (principal); G89.29 Other chronic pain; I10 Essential (primary) hypertension; M19.90 Unspecified osteoarthritis, unspecified site; Z88.8 Allergy status to other drugs, medicaments and biological substances; Z79.899 Other long term (current) drug therapy; Z79.891 Long term (current) use of opiate analgesic

== ENCOUNTER → 2019-12-01 | Outpatient (CLI) | payer OTHER | LOC: RAD 15:49 | DX: M79.602 Pain in left arm (principal) ==

== ENCOUNTER → 2019-12-04 | Outpatient (CLI) | payer OTHER | LOC: ULTRA 13:22 | DX: M77.02 Medial epicondylitis, left elbow (principal); I80.8 Phlebitis and thrombophlebitis of other sites ==

== ENCOUNTER → 2019-12-05 | Outpatient (CLI) | payer OTHER ==
[2019-12-05 10:27] LABS: CREATININE 0.8 mg/dL (0.6-1.0)
== END ==
LOC: CAT 09:53
PROVIDERS: Neuromusculoskeletal Medicine & OMM
DX: R91.1 Solitary pulmonary nodule (principal)

== ENCOUNTER → 2020-05-08 | Outpatient (CLI) | payer OTHER ==
[~2020-05-08] VITALS: Ht 167.6 cm; Wt 68.8 kg
--- NOTE | ~2020-05-08 | HPC ---
[facility] [address] [place] [address] PAIN MANAGEMENT CONSULTATION Name: COMFORT HUTCHISON Room #: REG [facility].#: [id number] Admission: 05/08/20 Attend Phys: Brett Harman DO Discharge: Date of : 50 Report #: [id number] THIS REPORT FOR: cc: Juvenal Cabrera,Brett Miller DO ~ CC: Brett Moreno DATE OF SERVICE: 05/08/2020 REFERRING PHYSICIAN: Juvenal Cabrera MD CHIEF COMPLAINT: Neck pain, bilateral upper extremity pain with paresthesias and upper back pain. HISTORY OF PRESENT ILLNESS: As you know, the patient is a very pleasant 70-year-old female who was initially seen by our services for chronic low back pain and bilateral lower extremity pain with paresthesias, right greater than left. The patient underwent epidural injections under fluoroscopic guidance with resolution of those symptoms. She states that she had been doing very well until recently where she began experiencing increasing neck pain, upper back pain and daily intermittent numbness and tingling in the distribution of the fourth and fifth digits bilaterally. She believed initially it was due to her carpal tunnel syndrome, this has been ruled out. She then returned to our clinic to discuss treatment options for this ongoing pain issue. She has not undergone any type of imaging of the cervical spine to evaluate. She states that the symptoms have been slow in their progression, but have now reached a level of intolerability. She has returned in followup visit to discuss treatment options for this ongoing neck and upper back pain. ALLERGIES: CODEINE, HYDROCODONE, NITROFURANTOIN. CURRENT MEDICATIONS: Gabapentin 400 mg p.o. at bedtime, hydrochlorothiazide 25 mg once a day, Estratest 0.625 mg once a day. SOCIAL HISTORY: The patient denies tobacco, alcohol, IV or illicit drug use. She continues to work. She is unaccompanied at today's visit. IMAGING: No new imaging available. PQRS: The patient has known arthritic changes of the lumbar spine, bilateral hands and hips. No diagnosis of rheumatoid arthritis. She places pain intensity today 5/10. She is not a fall risk nor has she had a fall in last 3 months. She is not on blood thinners, but is treated for hypertension. She is [address] [place] [address] PAIN MANAGEMENT CONSULTATION Name: COMFORT HUTCHISON Room #: REG [facility] Kevin#: [id number] Admission: 05/08/20 Attend Phys: Brett Harman DO Discharge: Date of : 50 Report #: [id number] not on chronic opioids, has a low opioid addiction potential. Pain impact score today 45 of 70 indicating severe interference of daily activities secondary to pain. PHYSICAL EXAMINATION: VITAL SIGNS: Blood pressure 150/77, pulse 89, respiratory rate 14 and unlabored. The patient is 98% on room air. Height 5 feet 6 inches tall, weight 151.6 pounds, BMI calculated 24.5. GENERAL: Well-developed, well-nourished, well-hydrated 70-year-old female appearing her stated age. She is placing current pain score 5/10. HEENT: Normocephalic, atraumatic. Pupils equal, round and reactive. Speech is fluent. EXTREMITIES: Show no clubbing, no cyanosis. No appreciable edema. MUSCULOSKELETAL: Upper extremity strength appears symmetrical 5/5. She is intact to light touch from C5 through T1 dermatomes. It was noted that the patient has slight giveaway strength over the fourth and fifth digits bilaterally, but muscle strength is rated 5/5. There is no atrophy noted in the upper extremities. Spurling's test is equivocal. Cervical provocation testing is met with increasing neck and upper back symptoms. Radiation is pain towards the inserts of the trapezius muscles bilaterally. Deep tendon reflexes appear equal and symmetrical in upper extremities, 1+ at biceps, brachialis and triceps. ASSESSMENT: 1. Cervical radiculopathy. 2. Cervical spondylosis with radiculopathy. 3. Neurogenic pain. PLAN: 1. Based on today's physical exam and history the patient has provided, the description the patient uses in regards to the symptoms, it would appear she is suffering from cervical radiculopathy. The distribution of symptoms upon the C8 dermatomal distribution. The patient has had a fusion in the cervical spine, but this appears to be related to areas below the fusion consistent with progressively worsening stenosis secondary to the original fusion. We discussed with the patient that further imaging may be necessary, though she wishes to trial treatment before looking towards further imaging. We discussed with the patient the treatment options we have available. Following was discussed with the patient today. We discussed physical therapy, stretching exercises and traction techniques as a treatment course. We discussed medication management, adjusting her neuropathic pain medications to more efficacious level. She is currently taking 400 mg at night and does not report any side effects, but also does not report improvement in pain. This could be escalated quite quickly. We discussed cervical epidural injection under fluoroscopic guidance as the most rapid treatment approach we [address] [address] PAIN MANAGEMENT CONSULTATION Name: COMFORT HUTCHISON Room #: REG [facility] Eusebio#: [id number] Admission: 05/08/20 Attend Phys: Brett Harman DO Discharge: Date of : 50 Report #: [id number] have available. We also discussed surgical options with the patient. After reviewing the risks and benefits of all proposed treatment options, the patient chose to move forward with a cervical epidural injection under fluoroscopic guidance. 2. The patient was unable to clear her afternoon schedule to rest and recover after today's procedure. She was having to return to work. She has made an appointment with us for Wednesday afternoon of this week to undergo a cervical epidural injection. This will give the patient a chance to go home after the procedure and rest throughout the weekend. This will give the cervical epidural injection the most promising amount of recovery we can offer and may provide further analgesic benefit above and beyond just a cervical epidural injection with return to work. It has been noted that rest after an injection does improve the efficacy of the procedure. 3. No medication changes were made at today's visit. We did recommend the patient to continue current medical therapy. 4. We will see the patient back in followup visit on Wednesday at around to 12-12:30 in the afternoon to undergo a cervical epidural injection under fluoroscopic guidance. We will keep you apprised of response to this treatment. By: [id number] Brett Harman DO /nt
[2020-05-08 13:18] VITALS: BP 150/77
--- NOTE | 2020-05-08 13:39 | NUR ---
Pain Clinic Assessment: 1. History of Osteoarthritis: Not Applicable History of Rheumatoid Arthritis: Not Applicable 2. Height: 5 ft. 6 in. 167.6 cm. Weight: 151.6 lb. oz. 68.765 kg. Patient's BMI: 24.5 3. Vital Signs: BP: 150/77 Pulse: 89 Resp: 14 Temp: 02 Sat: 98 ECG Mon: 4. Pain Intensity: 5 5. Fall Risk: Dizziness: N Needs help standing or walking: N Fallen in the last 3 months: N Fall risk comments: \ 6. Patient on Blood Thinner: None 7. History of Hypertension: Y 8. Opioid Therapy greater than 6 weeks: N Opiate Contract Signed: 9. Risk Assessment Tool Provided: low risk 10. Functional Assessment Tool: 45 11. Recreational Drug Use: Never Drug Type: Tobacco Use: Never Smoker Tobacco Type: Amount or Packs/day: How Many Years: Alcohol Use: Yes Frequency: Weekly Quant: 3-4
== END ==
LOC: PAIN 06:53 → RAD 06:53 → PAIN 09:09
PROVIDERS: ATTEND Anesthesiology Pain Medicine
DX: M54.2 Cervicalgia (principal); M47.22 Other spondylosis with radiculopathy, cervical region; Z79.899 Other long term (current) drug therapy; Z88.5 Allergy status to narcotic agent; Z88.8 Allergy status to other drugs, medicaments and biological substances; Z72.89 Other problems related to lifestyle

== ENCOUNTER → 2020-05-15 | Outpatient (CLI) | payer OTHER ==
[~2020-05-15] VITALS: Ht 167.6 cm; Wt 68.1 kg
--- NOTE | ~2020-05-15 | HPC ---
[facility] [address] [address] PAIN MANAGEMENT CONSULTATION Name: COMFORT HUTCHISON [facility] #: [facility]Little.#: [id number] Admission: 05/15/20 Attend Phys: Brett Harman DO Discharge: Date of : 50 Report #: [id number] CC: Brett Cabrera MD DATE OF SERVICE: 05/15/2020 CHIEF COMPLAINT: Neck pain, bilateral upper extremity pain with paresthesias along with upper back pain. HISTORY OF PRESENT ILLNESS: As you know, the patient is a very pleasant 70-year-old female who has returned today in followup visit to undergo cervical epidural injection under fluoroscopic guidance. We saw the patient on 05/08/2020, established today's appointment to undergo cervical epidural injection. She reports today pain level of about 5/10. She states that she has trialed conservative treatment, adjustments in medications and adjustment in her sleep patterns, but has not noted improvement in symptoms. She returns today for a cervical epidural injection under fluoroscopic guidance to address cervical radiculopathy. The patient again denies injury or trauma to the cervical spine and upper back that may have led to symptoms. ALLERGIES: CODEINE, HYDROCODONE, NITROFURANTOIN. CURRENT MEDICATIONS: Gabapentin, hydrochlorothiazide, Estratest. SOCIAL HISTORY: The patient denies tobacco, alcohol, IV or illicit drug use. She is working, not receiving workmen's compensation. She is accompanied by her present in room today. IMAGING: No new imaging available. PQRS: The patient has known arthritic changes of the lumbar spine, bilateral hips and hands, no diagnosis of rheumatoid arthritis. She is placing pain intensity today 5/10. She is not a fall risk, has not had a fall in last 3 months. She has no blood thinners, but is treated for hypertension. She is not on opioids, has a low opioid addiction potential based on our assessment tool. Pain impact is 45/70, moderate to severe interference of daily activities secondary to pain. PHYSICAL EXAMINATION: VITAL SIGNS: Blood pressure 151/91, pulse 101, respiratory rate 16 and unlabored. The patient is 100% on room air. Height 5 feet 6 inches tall, weight 250.2 pounds, BMI calculated 24.3. GENERAL: Well-developed, well-nourished, well-hydrated 70-year-old female appearing stated age, pain is rated today around 5/10. HEENT: Normocephalic, atraumatic. Pupils equal, round and reactive. Speech is fluent. EXTREMITIES: Show no clubbing, no cyanosis. No appreciable edema. MUSCULOSKELETAL: Upper extremity strength equal and symmetrical 5/5, intact to light touch from C5-T1 dermatomes. Spurling's test is positive on the left. Cervical provocation testing is met with increasing pain with lateral flexion and rotation to the left. ASSESSMENT: 1. Cervical radiculopathy. 2. Cervical spondylosis with radiculopathy. 3. Chronic neurogenic pain. PLAN: 1. The patient returns today in followup visit to undergo cervical epidural injection under fluoroscopic guidance to address cervical radiculopathy. The patient and I discussed at length the risks and the benefits of this procedure. These risks include but are not necessarily limited to bleeding, bruising, infection, worsening pain, no relief of pain, also risk of temporary or permanent muscle weakness, temporary or permanent nerve damage, possible paralysis and . The patient states understood and wished to proceed. 2. The patient will be sent for x-ray imaging of the cervical spine. We are requesting plain film imaging to be done initially. As you are aware, the patient has undergone fusion of the cervical spine, we used to review this in imaging form. If we are unable to see significant findings with the imaging, we will then send the patient for MRI of the cervical spine. We will review those findings once they are available. I am not concerned greatly with the fusion, I am concerned with the area above and below the fusion causing her current symptoms. We will review those findings. The patient can contact our clinic next week for those results. 3. No medication changes made at today's visit. The patient will continue current medical therapy as prior prescribed. 4. We will plan to see the patient back in followup visit for possible next in the series of cervical epidural injections on an as needed basis. PROCEDURE NOTE DESCRIPTION OF PROCEDURE: Cervical epidural steroid injection under fluoroscopic guidance. After obtaining written consent, the patient was taken back to fluoroscopy suite, placed in prone position with separate pillows under chest and forehead to decrease cervical lordosis. Skin overlying the cervical area then prepped and draped in aseptic fashion. The cervical intravertebral spaces were identified by AP fluoroscopy. Skin and subcutaneous tissue overlying target site injection anesthetized with 3 mL of 1% lidocaine. A 20-gauge 3-1/2 inch Tuohy needle advanced under fluoroscopic guidance towards the epidural space using midline approach. Epidural space identified using loss of resistance to air technique. After negative aspiration for heme or cerebrospinal fluid, 1 mL of Omnipaque injected. Cervical epidurogram confirmed using both AP and lateral fluoroscopy. After negative aspiration for heme or cerebrospinal fluid, 5 mL of a solution containing 2 mL 40 mg per mL, 80 mg total triamcinolone along with 3 mL of lidocaine 1% injected slowly. Needle retracted mcc, flushed with 1 mL of 1% lidocaine and then removed. Sterile bandage placed over injection site. No new motor deficits present in the upper extremities following procedure. The patient tolerated procedure well, carefully escorted to recovery room in stable condition. No apparent complications. After meeting discharge criteria, the patient discharged home. By: [id number] Brett Harman DO /nt
[2020-05-15 15:54] VITALS: BP 151/91
--- NOTE | 2020-05-15 16:08 | NUR ---
Pain Clinic Assessment: 1. History of Osteoarthritis: Not Applicable History of Rheumatoid Arthritis: Not Applicable 2. Height: 5 ft. 6 in. 167.6 cm. Weight: 150.2 lb. oz. 68.130 kg. Patient's BMI: 24.3 3. Vital Signs: BP: 151/91 Pulse: 101 Resp: 16 Temp: 02 Sat: 100 ECG Mon: 4. Pain Intensity: 5 5. Fall Risk: Dizziness: N Needs help standing or walking: N Fallen in the last 3 months: N Fall risk comments: \ 6. Patient on Blood Thinner: None 7. History of Hypertension: Y 8. Opioid Therapy greater than 6 weeks: N Opiate Contract Signed: 9. Risk Assessment Tool Provided: low risk 10. Functional Assessment Tool: 45 11. Recreational Drug Use: Never Drug Type: Tobacco Use: Never Smoker Tobacco Type: Amount or Packs/day: How Many Years: Alcohol Use: Yes Frequency: Quant:
== END | disposition home or self-care (01) ==
LOC: PAIN 15:40
PROVIDERS: ATTEND Anesthesiology Pain Medicine
DX: M47.22 Other spondylosis with radiculopathy, cervical region (principal); G89.29 Other chronic pain; I10 Essential (primary) hypertension; M19.90 Unspecified osteoarthritis, unspecified site; Z98.890 Other specified postprocedural states; Z79.899 Other long term (current) drug therapy; Z88.8 Allergy status to other drugs, medicaments and biological substances

== ENCOUNTER → 2021-05-23 | Outpatient (CLI) | payer OTHER | LOC: ULTRA 15:40 | PROVIDERS: ATTEND Nurse Practitioner | DX: M71.22 Synovial cyst of popliteal space [Baker], left knee (principal); M25.462 Effusion, left knee; M79.89 Other specified soft tissue disorders ==